=== PATIENT | female | born 1945 | race Caucasian/White ===

== ENCOUNTER 2016-07-29 19:08 | Inpatient (IN) | payer MEDICARE ==
[2016-07-29 20:16] LABS: Hematocrit 28 % (35-47); Hemoglobin 9.3 g/dl (12.0-16.0); Mean Corpuscular HGB Conc 33 g/dl (31-36); Mean Corpuscular Hemoglobin 30 pg (27-31); Mean Corpuscular Volume 91 fL (80-97); Mean Platelet Volume 9 um3 (7.4-10.4); Red Blood Count 3.12 10^6/ul (4.0-5.4); Red Cell Distribution Width 13 % (10.5-15); White Blood Count 11.4 10^3/ul (3.5-10.8)
[2016-07-29 20:31] LABS: Albumin 3.1 g/dL (3.2-5.2); BUN/Creatinine Ratio 75.6 (8-20); Calcium 8.6 mg/dL (8.6-10.3); EGFR African American 93.6 (>60); EGFR Non-African American 72.8 (>60); Globulin 2.3 g/dL (2-4); Potassium 4.5 mmol/L (3.5-5.0); Total Bilirubin 0.3 mg/dL (0.2-1.0); Total Protein 5.4 g/dL (6.4-8.9)
[2016-07-29] MEDS ORDERED: Melatonin (NF) 3 MG TAB PO PRN (20:54)
[2016-07-29] MEDS ORDERED: Ondansetron INJ* 2 MG/ML VIAL IV PRN (20:54)
[2016-07-29] MEDS ORDERED: Acetaminophen TAB* 325 MG PO PRN (20:54)
[2016-07-29] MEDS ORDERED: Pantoprazole IV* 40 MG IV ONE (21:07)
[2016-07-29] MEDS: NS 0.9% 1000 ML* 1,000 ML IV SCH ×3 (21:34→23:53)
--- NOTE | 2016-07-29 23:34 | ED ---
Benito Morin Salem, scribed for Camron Madsen MD on 07/29/16 at 8 . GI/ HPI - HPI Summary HPI Summary: Patient is a 71 y/o F who presents to the ED with black tarry stool for the last 2 days. She also reports constipation since onset and progressive weakness (to the point of lightheadedness with walking). However, pt denies any pain. Pt has a hx of gallstones. - History of Current Complaint Chief Complaint: EDGIBleed Time Seen by Provider: 07/29/16 19:27 Stated Complaint: LOWER GI BLEED Hx Obtained From: Patient Onset/Duration: Started Days Ago, Atraumatic, Still Present Timing: Intermittent Severity: Moderate Current Severity: Moderate Pain Intensity: 0 Associated Signs and Symptoms: Positive: Black Tarry Stool Aggravating Factor(s): Nothing Alleviating Factor(s): Nothing - Allergy/Home Medications Allergies/Adverse Reactions: Allergies Allergy/AdvReac Type Severity Reaction Status Date / Time Shellfish Allergy Allergy Flushing Verified 03/15/15 11:16 Sulfa Antibiotics Allergy Unknown Verified 03/15/15 11:16 Reaction Details Home Medications: Home Medications Ascorbic Acid TAB* [Vitamin C TAB*] 1,000 mg PO DAILY 07/29/16 [History Confirmed 07/29/16] Cholecalciferol [D3-1000] 1,000 unit PO DAILY 07/29/16 [History Confirmed ] Cyanocobalamin [B12] 5,000 mcg PO DAILY 07/29/16 [History Confirmed 07/29/16] PMH/Surg Hx/FS Hx/Imm Hx Cardiovascular History: Reports: Hx Hypertension - ON MEDS, STATES CONTROLLED Musculoskeletal History: Reports: Hx Arthritis - KNEES, SHOULDERS, GETS ACCUPUNCTURE FOR RELIEF Sensory History: Reports: Hx Cataracts - LEFT EYE, Hx Contacts or Glasses - GLASSES Opthamlomology History: Reports: Hx Cataracts - LEFT EYE, Hx Contacts or Glasses - GLASSES Psychiatric History: Reports: Hx Anxiety - Hx OF, PAST, Hx Depression - Hx OF, CURRENT, NO MEDS - Surgical History Surgery Procedure, Year, and Place: RIGHT EYE CATARACT [place] Hx Anesthesia Reactions: No Infectious Disease History: No Infectious Disease History: Denies: Traveled Outside the [place] in Last 30 Days - Family History Known Family History: Positive: Other - Cataract. - Social History Alcohol Use: None Hx Substance Use: No Substance Use Type: Reports: None Hx Tobacco Use: No Smoking Status (MU): Never Smoked Tobacco Have You Smoked in the Last Year: No Review of Systems Positive: Other - No pain. Positive: other - Black tarry stool. Constipation. Neurological: Other - Lightheadedness with walking. Positive: Weakness All Other Systems Reviewed And Are Negative: Yes Physical Exam - Summary Physical Exam Summary: Pt denies rectal exam. Triage Information Reviewed: Yes Vital Signs On Initial Exam: Initial Vitals Temp Pulse Resp BP Pulse Ox 97.2 F 99 16 172/94 98 07/29/16 19:25 07/29/16 19:25 07/29/16 19:25 07/29/16 19:25 07/29/16 19:25 Vital Signs Reviewed: Yes Appearance: Positive: Well-Appearing, No Pain Distress, Obese Skin: Positive: Warm, Skin Color Reflects Adequate Perfusion, Dry Head/Face: Positive: Normal Head/Face Inspection Eyes: Positive: Normal Neck: Positive: Supple, Nontender Respiratory/Lung Sounds: Positive: Clear to Auscultation, Breath Sounds Present Cardiovascular: Positive: RRR Abdomen Description: Positive: Nontender, Soft Bowel Sounds: Positive: Present Musculoskeletal: Positive: Normal Neurological: Positive: Normal Psychiatric: Positive: Normal, Affect/Mood Appropriate - Ursula Coma Scale Coma Scale Total: 15 Diagnostics - Vital Signs Vital Signs Temp Pulse Resp BP Pulse Ox 07/29/16 19:38 92 19 97 07/29/16 19:25 97.2 F 99 16 172/94 98 - Laboratory Lab Results: Lab Results 07/29/16 Range/Units 20:10 WBC 11.4 H (3.5-10.8) 10^3/ul RBC 3.12 L (4.0-5.4) 10^6/ul Hgb 9.3 L (12.0-16.0) g/dl Hct 28 L (35-47) % MCV 91 (80-97) fL MCH 30 (27-31) pg MCHC 33 (31-36) g/dl RDW 13 (10.5-15) % Plt Count 242 (150-450) 10^3/ul MPV 9 (7.4-10.4) um3 Neut % (Auto) 81.5 (38-83) % Lymph % (Auto) 14.0 L (25-47) % [place] % (Auto) 3.8 (1-9) % Eos % (Auto) 0.2 (0-6) % Baso % (Auto) 0.5 (0-2) % Absolute Neuts (auto) 9.3 H (1.5-7.7) 10^3/ul Absolute Lymphs (auto) 1.6 (1.0-4.8) 10^3/ul Absolute Monos (auto) 0.4 (0-0.8) 10^3/ul Absolute Eos (auto) 0 (0-0.6) 10^3/ul Absolute Basos (auto) 0.1 (0-0.2) 10^3/ul Absolute Nucleated RBC 0.01 10^3/ul Nucleated RBC % 0.1 Result Diagrams: 07/29/16 20:10 07/29/16 20:10 Lab Statement: Any lab studies that have been ordered have been reviewed, and results considered in the medical decision making process. Re-Evaluation - Re-Evaluation First Eval Re-Evaluation Time: 21:25 Comment: Informed pt of plan. GIGU Course/Dx - Course Course Of Treatment: Ms. Quintana presented C/O black stools for a couple days. She refused a rectal exam because of childhood trauma. Her hemoglobin was 9.3 and her BUN 69 indicating a likely upper GI bleed. She was borderliine tachycardic on arrival and improved with a liter of NS. She was started on protonix as a bolus and drip and the hospitalists were contacted for admission. Dr. Browne was notified of his admission. - Diagnoses Provider Diagnoses: Upper GI hemorrhage - Physician Notifications Discussed Care Of Patient With: Dr. Browne Time Discussed With Above Provider: 21:18 Instructed by Provider To: Other - Discussed case. Dr. Mon (hospitalist ) @ [id number]. Will admit. Admit/Transition Orders Completed By ED Provider: Yes - Critical Care Time Critical Care Time: 30-74 min Discharge - Discharge Plan Condition: Stable Disposition: ADMITTED TO [facility] documentation as recorded by the Benito tafoya Salem accurately reflects the service I personally performed and the decisions made by , Camron Madsen MD.
[2016-07-29] MEDS: Pantoprazole IV* 80 MG in NS 0.9% 250 ML* 250 ML IVPB SCH (23:39)
[2016-07-30 01:33] LABS: Hematocrit 24 % (35-47); Hemoglobin 7.8 g/dl (12.0-16.0)
[2016-07-30] MEDS: NS 0.9% 1000 ML* 1,000 ML IV SCH ×2 (01:34→12:49)
--- NOTE | 2016-07-30 04:34 | HP ---
H&P (Free Text) History and Physical: PCP: none; Patient states she doesn't believe in "Western Medicine" and so follow with an accupuncturist Date/Time of Evaluation: 07/29/20162044 CC: black stools HPI: Mrs Quintana is a 71YO obese white female HX HTN for which she self-D/C'd her medications long ago who reports painless black bowel movements starting 2 days ago with her last BM at home having bright red on the more normal brown exterior. She had a small BM upon arrival to [facility] described as normal. She admits to fatigue, but denies HX of similar, F/C, N/V, chest pain, SOB, or other. Rather than her current history, she is more interested and perseverant regarding being told long ago she had gall stones and needed a cholecystectomy which she refused. She changed her diet and "hasn't had any problems since, except some pain (motions to her RUQ)" when she eats high fat meals. PMedHx HTN cholelithiasis PSurgHx denies SocHx: denies tobacco, alcohol, & recreational drugs; lives alone; full code status FamHx: positive for HTN ROS: as above, otherwise reviewed and all were negative Constitutional: NAD, normally developed, obese elderly white female vitals: Vital Signs Temp 36.9 C 07/29/16 23:41 Pulse 87 07/29/16 23:41 Resp 20 07/29/16 23:41 BP 137/77 07/29/16 23:41 Pulse Ox 98 07/29/16 23:41 Intake & Output 07/29/16 07/29/16 07/30/16 11:59 23:59 11:59 Intake Total 990 Output Total 750 Balance 240 Weight 104.553 kg Intake: IV Fluids 990 NS (0.9%) 990 Output: Urine 750 Other: # Voids 2 HEENM: atraumatic; sclera/conjunctiva: non-icteric/clear; hearing: clinically intact; oropharynx: clear, mucosa tacky Neck: soft tissue: non-tender; thyroid: normal Pulmonary: clear to auscultation bilaterally, good aeration, no accessory muscle use CV: RR/RR, normal S1S2, no carotid bruit, no jugular venous distention, 2+ B DP/ PT, no edema Abdominal: soft, non-distended, non-tender, no rebound/guarding/rigidity, normoactive bowel sounds, no hepatosplenomegaly or masses, no costovertebral angle tenderness Musculoskeletal: general: grossly intact; gait: stable Integumental: normal appearance and texture of exposed skin Psychiatric orientation: AA&O to PPS affect: calm mood: cooperative eye contact: good content: reliable responses: timely insight: poor Testing: Lab Results 07/29/16 07/29/16 07/29/16 Range/Units 20:10 20:10 21:25 WBC 11.4 H (3.5-10.8) 10^3/ul RBC 3.12 L (4.0-5.4) 10^6/ul Hgb 9.3 L (12.0-16.0) g/dl Hct 28 L (35-47) % MCV 91 (80-97) fL MCH 30 (27-31) pg MCHC 33 (31-36) g/dl RDW 13 (10.5-15) % Plt Count 242 (150-450) 10^3/ul MPV 9 (7.4-10.4) um3 Neut % (Auto) 81.5 (38-83) % Lymph % (Auto) 14.0 L (25-47) % Forrest % (Auto) 3.8 (1-9) % Eos % (Auto) 0.2 (0-6) % Baso % (Auto) 0.5 (0-2) % Absolute Neuts (auto) 9.3 H (1.5-7.7) 10^3/ul Absolute Lymphs (auto) 1.6 (1.0-4.8) 10^3/ul Absolute Monos (auto) 0.4 (0-0.8) 10^3/ul Absolute Eos (auto) 0 (0-0.6) 10^3/ul Absolute Basos (auto) 0.1 (0-0.2) 10^3/ul Absolute Nucleated RBC 0.01 10^3/ul Nucleated RBC % 0.1 Sodium 135 (133-145) mmol/L Potassium 4.5 (3.5-5.0) mmol/L Chloride 107 (101-111) mmol/L Carbon Dioxide 24 (22-32) mmol/L Anion Gap 4 (2-11) mmol/L BUN 59 H (6-24) mg/dL Creatinine 0.78 (0.51-0.95) mg/dL Est GFR ( Amer) 93.6 (>60) Est GFR (Non-Af Amer) 72.8 (>60) BUN/Creatinine Ratio 75.6 H (8-20) Glucose 140 H (70-100) mg/dL Calcium 8.6 (8.6-10.3) mg/dL Total Bilirubin 0.30 (0.2-1.0) mg/dL AST 16 (13-39) U/L ALT 9 (7-52) U/L Alkaline Phosphatase 41 (34-104) U/L Total Protein 5.4 L (6.4-8.9) g/dL Albumin 3.1 L (3.2-5.2) g/dL Globulin 2.3 (2-4) g/dL Albumin/Globulin Ratio 1.3 (1-3) Blood Type A Positive Antibody Screen Negative 07/30/16 Range/Units 01:28 WBC (3.5-10.8) 10^3/ul RBC (4.0-5.4) 10^6/ul Hgb 7.8 L (12.0-16.0) g/dl Hct 24 L (35-47) % MCV (80-97) fL MCH (27-31) pg MCHC (31-36) g/dl RDW (10.5-15) % Plt Count (150-450) 10^3/ul MPV (7.4-10.4) um3 Neut % (Auto) (38-83) % Lymph % (Auto) (25-47) % Forrest % (Auto) (1-9) % Eos % (Auto) (0-6) % Baso % (Auto) (0-2) % Absolute Neuts (auto) (1.5-7.7) 10^3/ul Absolute Lymphs (auto) (1.0-4.8) 10^3/ul Absolute Monos (auto) (0-0.8) 10^3/ul Absolute Eos (auto) (0-0.6) 10^3/ul Absolute Basos (auto) (0-0.2) 10^3/ul Absolute Nucleated RBC 10^3/ul Nucleated RBC % Sodium (133-145) mmol/L Potassium (3.5-5.0) mmol/L Chloride (101-111) mmol/L Carbon Dioxide (22-32) mmol/L Anion Gap (2-11) mmol/L BUN (6-24) mg/dL Creatinine (0.51-0.95) mg/dL Est GFR ( Amer) (>60) Est GFR (Non-Af Amer) (>60) BUN/Creatinine Ratio (8-20) Glucose (70-100) mg/dL Calcium (8.6-10.3) mg/dL Total Bilirubin (0.2-1.0) mg/dL AST (13-39) U/L ALT (7-52) U/L Alkaline Phosphatase (34-104) U/L Total Protein (6.4-8.9) g/dL Albumin (3.2-5.2) g/dL Globulin (2-4) g/dL Albumin/Globulin Ratio (1-3) Blood Type Antibody Screen Impression: 71F presenting most consist with an upper GI bleed DIAGNOSIS & PLAN Primary upper GI bleed : pantoprazole bolus/GTT : IVFs : type & screen : trend H&H : Slavador Browne MD GI consulted by Reginald Madsen MD ED; will follow : clear liquids/NPO after 0400 for EGD in AM (initially reluctant to consent, but agrees to me) Secondary HTN : monitor, initiate meds as indicated cholelithiasis : no acute issues Admission Rational: inpatient for upper GI bleed not anticipated to be adequately stabilized w/i 48h to allow for discharge DVTp: SCDs, no anticoagulation 2nd GI bleeding Code Status: full HCP: declines to designate
[2016-07-30 05:07] LABS: Hematocrit 25 % (35-47); Hemoglobin 8.1 g/dl (12.0-16.0); Mean Corpuscular HGB Conc 33 g/dl (31-36); Mean Corpuscular Hemoglobin 30 pg (27-31); Mean Corpuscular Volume 91 fL (80-97); Mean Platelet Volume 10 um3 (7.4-10.4); Red Blood Count 2.71 10^6/ul (4.0-5.4); Red Cell Distribution Width 13 % (10.5-15); White Blood Count 9.9 10^3/ul (3.5-10.8)
[2016-07-30 05:30] LABS: BUN/Creatinine Ratio 60.6 (8-20); EGFR African American 104.4 (>60); EGFR Non-African American 81.2 (>60); Potassium 3.5 mmol/L (3.5-5.0)
--- NOTE | 2016-07-30 10:36 | PN ---
Subjective Date of Service: 07/30/16 Interval History: No nausea, pain. No BM since admission. No new c/o. Objective Active Medications: Acetaminophen (Tylenol Tab*) 650 mg PO Q6H PRN PRN Reason: FEVER/PAIN Pantoprazole Sodium 80 mg/ (Sodium Chloride) 250 mls @ 25 mls/hr IVPB Q10H [facility] Last Admin: 07/29/16 23:39 Dose: 25 mls/hr Sodium Chloride (Ns 0.9% 1000 Ml*) 1,000 mls @ 125 mls/hr IV PER RATE [facility] Last Admin: 07/30/16 01:34 Dose: 125 mls/hr Sodium Chloride (Ns 0.9% 1000 Ml*) 1,000 mls @ 0 mls/hr IV WIDE OPEN SUSANNE PRN Reason: Wide Open Stop: 07/30/16 21:01 Last Admin: 07/29/16 23:53 Dose: 999 mls/hr Melatonin (Melatonin (Nf)) 3 mg PO BEDTIME PRN; Protocol PRN Reason: Sleep Ondansetron HCl (Zofran Inj*) 4 mg IV Q6H PRN PRN Reason: NAUSEA Vital Signs 07/29/16 07/29/16 07/29/16 20:55 21:00 21:30 Temperature Pulse Rate Respiratory Rate Blood Pressure 157/86 169/86 155/76 (mmHg) O2 Sat by Pulse Oximetry 07/29/16 07/29/16 07/30/16 22:19 23:41 07:15 Temperature 98.0 F 98.4 F 97.4 F Pulse Rate 86 87 77 Respiratory 20 20 16 Rate Blood Pressure 161/95 137/77 154/71 (mmHg) O2 Sat by Pulse 100 98 97 Oximetry 07/30/16 08:00 Temperature Pulse Rate Respiratory 16 Rate Blood Pressure (mmHg) O2 Sat by Pulse Oximetry Oxygen Devices in Use Now: None Appearance: Alert, sitting up in bed. In good spirits. Looks comfortable. Eyes: No Scleral Icterus, PERRLA, - Abdominal: NL Sounds; No Tenderness; No Distention, No Hepatosplenomegaly, - Extremities: No Edema, No Clubbing, Cyanosis, - Skin: No Rash or Ulcers, No Nodules or Sclerosis, - Neurological: Alert and Oriented x 3, NL Sensation Result Diagrams: 07/30/16 04:47 07/30/16 04:47 Additional Lab and Data: Lab Results 07/29/16 Range/Units 20:10 WBC 11.4 H (3.5-10.8) 10^3/ul RBC 3.12 L (4.0-5.4) 10^6/ul Hgb 9.3 L (12.0-16.0) g/dl Hct 28 L (35-47) % MCV 91 (80-97) fL MCH 30 (27-31) pg MCHC 33 (31-36) g/dl RDW 13 (10.5-15) % Plt Count 242 (150-450) 10^3/ul MPV 9 (7.4-10.4) um3 Neut % (Auto) 81.5 (38-83) % Lymph % (Auto) 14.0 L (25-47) % [place] % (Auto) 3.8 (1-9) % Eos % (Auto) 0.2 (0-6) % Baso % (Auto) 0.5 (0-2) % Absolute Neuts (auto) 9.3 H (1.5-7.7) 10^3/ul Absolute Lymphs (auto) 1.6 (1.0-4.8) 10^3/ul Absolute Monos (auto) 0.4 (0-0.8) 10^3/ul Absolute Eos (auto) 0 (0-0.6) 10^3/ul Absolute Basos (auto) 0.1 (0-0.2) 10^3/ul Absolute Nucleated RBC 0.01 10^3/ul Nucleated RBC % 0.1 Assess/Plan/Problems-Billing Assessment: - Patient Problems (1) UGI bleed Current Visit: Yes Status: Acute Code(s): K92.2 - GASTROINTESTINAL HEMORRHAGE, UNSPECIFIED SNOMED Code(s): 85705122 Comment: Continue IV PPI. EGD today. Pt had many appropriate questions which I answered. Discussed with Dr. Browne.
[2016-07-30 12:25] LABS: Hematocrit 26 % (35-47); Hemoglobin 8.6 g/dl (12.0-16.0)
[2016-07-30] MEDS ORDERED: Meperidine SYRINGE* 50 MG/ML ONE (14:07)
[2016-07-30] MEDS ORDERED: Midazolam* 1 MG/ML 10 ML VIAL (10 MG) ONE (14:08)
--- NOTE | 2016-07-30 15:19 | PN ---
Progress Note - Progress Note Note: EGD results discussed with Dr. Browne. He recommends continuing the IV pantoprazole until 07/31, and discharging her on omeprazole 40 mg once daily with instructions to take NO NSAIDS.
[2016-07-30] MEDS: Pantoprazole IV* 80 MG in NS 0.9% 250 ML* 250 ML IVPB SCH ×2 (16:37→19:28)
[2016-07-30] MEDS ORDERED: Pantoprazole IV* 40 MG ONE (19:19)
[2016-07-30] MEDS ORDERED: Pantoprazole IV* 40 MG IV ONE (20:44)
[2016-07-30 22:35] LABS: Ferritin 56.9 ng/mL (11-307)
--- NOTE | 2016-07-30 23:43 | CONS ---
GASTROENTEROLOGY CONSULT: DATE OF CONSULT: 07/30/16 REFERRING PHYSICIAN: Edy Steinberg MD REASON FOR CONSULTATION: Weakness, dizziness with black stool and hemoglobin of 9.3 on admission falling to 7.8 overnight. HISTORY: This 71-year-old woman who moved to [place] 2 years ago and lives alone says that on 07/27/16, she passed a very dark stool. She had not been taking Pepto- Bismol. The next day, 07/28/16, she felt weaker and dizzy and was diaphoretic. The weakness scared her and she decided to come to the hospital even though she objects to most traditional medicine concepts. She does not have a regular allopathic physician in [place]. She denies any abdominal pain. She will take aspirin for headaches, though emphasizes they are infrequent, no more than several times a year. Additionally , she does take Aleve sometimes for aches and pains, but emphasizes that that is rare also. She has never been treated for a peptic problem. There has been no nausea or vomiting. She has been a vegetarian for over 10 years, but states unaccountably she had a craving to have meat and had some about 3 days ago and wonders if that upset her. PAST MEDICAL HISTORY: She is not followed by a regular physician. 1. Hypertension - she says that she took regular medicines briefly, but decided she was scared of side effects and so put herself on [place] herbs and after some months, weaned herself off that. In the hospital, her blood pressure has been edging downward into a normal range, 154/74 this morning. 2. Gallstones - she said she refused a cholecystectomy many years ago. 3. Status post cataract surgery - twice several years apart. She had no trouble with the premedication. SOCIAL HISTORY: She is from the [place], [place] area originally. She went to college in [employer] and got a master's in anthropology. 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 She lives alone and is estranged from her family. She does have a friend in [place], [place] that she would contact if something were life threatening, though at this time did not have a healthcare proxy. She recognizes the importance of that. REVIEW OF SYSTEMS: No known history of heart disease, pulmonary disease, liver or kidney disease. She is not treated for any dermatologic problems. She has never had a stroke. She has never been told she is anemic or placed on iron. She had seen Dr. Roberta Paulson in 2016, but has not been back there since her intermediate. PHYSICAL EXAMINATION: She is a slightly pale, elderly woman, asking many questions. Pulse 76, regular. HEENT exam is unremarkable. She has no adenopathy. Her lungs are clear. Heart sounds are regular. Breast and pelvic exams: Deferred. The abdomen is obese, but normal bowel sounds, soft, and nontender. Rectal: Deferred. Extremities: Show puffiness, but no pitting edema. Muscle tone seems reduced. LABORATORY DATA: Her first CBC in the hospital system, 07/29/16, showed a hemoglobin of 9.3, MCV 91, platelets 242, and her initial chemistries from the same date were normal with normal LFT's, albumin 3.1, creatinine 0.71. IMPRESSION: This 71-year-old woman presenting with the subacute upper GI bleed. It was fast enough to cause presyncope 2 days ago. Clearly, the first test is upper endoscopy. She is on a PPI drip at the moment. She asked numerous questions, mostly revealing a mistrust of most medical processes. She simultaneously asked whether the test could be done within hours or why it could not wait to be done as an outpatient in a week. The overall impression is one of marked anxiety and a preference for alternative medicine. [id number]/[facility] #: [id number] MTDD
[2016-07-31] MEDS: NS 0.9% 1000 ML* 1,000 ML IV SCH (01:49)
[2016-07-31] MEDS: Pantoprazole IV* 80 MG in NS 0.9% 250 ML* 250 ML IVPB SCH (07:40)
--- NOTE | 2016-07-31 08:54 | PRO ---
DATE: 07/30/16 - ROOM #446 REFERRING PHYSICIAN: Roberta Paulson MD * PROCEDURE: Upper gastrointestinal endoscopy and CLOtest. INDICATION: This 71-year-old woman came in with melena. Her hemoglobin which had been 9.3, decreased to 7.6 and then without transfusion it has come back up to 8.3. ENDOSCOPIST: Dr. Browne. MEDICATIONS: Midazolam 4, meperidine 37.5. FINDINGS: She is an elderly woman, slightly pale, in no overt distress. She tolerated the exam exceedingly well. EGD: Larynx - symmetric, limited views. Esophagus - easily entered and the mucosa is normal in the upper, mid, and lower esophagus. The EG junction is a little loose at 39, though no erosions or chronic change. Stomach - generally normal mucosa in the cardia, fundus, and body. There are some erosions in the mid to distal antrum and then there is deformity and contraction of the distal antrum with a narrowed lumen and multiple small ulcers , some with red edges in the antrum. There is no active bleeding and no clot. The area appears benign as there is no shelf or fungating area. Duodenum - the pylorus appears normal and the bulb has just some minimal erythema. The second, third, and fourth portions of the duodenum appeared normal. IMPRESSION: Deformed gastric antrum with ulcerations - this fits her history fairly well. Whether there was a chronic component to her bleeding is uncertain but suspected. The etiology would be most likely helicobacter, although her use of Aleve may be more than so far revealed. Tumor is not as likely though a repeat exam in 2 months will be requested. [id number]/[facility] #: [id number] MTDD
--- NOTE | 2016-07-31 09:46 | DCNOTE ---
Patient seen this morning. Had long conversation about EGD findings, need for medication, avoidance of NSAIDs. States she notes her stool is lightening, no longer dark black. No abdominal pain or chest pain. On exam, lungs CTA B/L, no w/r/r, abd soft, NTND, BS+, RRR, s1 and s2 present, no m/g/r. Patient refused IV protonix this AM, also refused repeat blood draw to monitor Hb/Hct. Will discharge home on PO Omeprazole. Encouraged avoidance of NSAIDs. Patient hesitant to follow-up with an physicians that are opposed to alternative medicine. Used to see Dr. Paulson who is no longer practicing, will provide number for Dr. Fair who is part of [facility] as well. Also will need to f/u with Dr. Browne's office.
[2016-07-31] MEDS ORDERED: Omeprazole CAP* 20 MG ONE (09:53)
[2016-07-31 10:12] VITALS: BP 151/81
--- NOTE | 2016-07-31 16:50 | DS ---
CC: Dr. Roberta Paulson; Dr. Fair * DATE OF ADMISSION: 07/29/2016. DATE OF DISCHARGE: 07/31/2016. PRIMARY CARE PHYSICIAN: Dr. Roberta Paulson. DISCHARGE MEDICATION REGIMEN: 1. Omeprazole 40 mg by mouth daily. 2. Milk thistle two tablets by mouth daily. 3. Vitamin C 1000 mg by mouth daily. 4. Cholecalciferol 1000 units by mouth daily. 5. Cyanocobalamin 5000 mcg by mouth daily. STUDY DONE DURING HOSPITALIZATION: Upper endoscopy: Impression: Deformed gastric antrum with ulcerations. No active bleeding. HISTORY OF PRESENT ILLNESS AND HOSPITAL SUMMARY: Please see the full history and physical by Dr. Sanjiv Mon for full details. Briefly, Ms. Quintana is a 71-year- old female with a past medical history of hypertension who presented to the hospital with melena. She was found to have a microcytic anemia with hemoglobin dropping to 7.8. She did not receive any blood transfusions while in the hospital. She was started on a Protonix drip and GI was consulted. The patient was evaluated by Dr. Browne and the patient underwent an EGD that showed some ulcerations in the antrum. On the day of discharge, the patient decided to discontinue her own PPI drip and she also refused any further blood work to ensure her hemoglobin and hematocrit were not dropping. She did state that her stools have been lightening. She is very anxious to leave the hospital. She was discharged on oral Omeprazole and was given a dose prior to leaving the hospital. She will need to follow-up with GI and she will need a new PCP appointment. I have provided her the number for Dr. Fair's office who used to share an office with Dr. Paulson who is no longer practicing in the area, so hopefully she will follow up, although the patient has endorsed distrust of western medicine, but I have encouraged her to follow-up as closely from his hospitalization. She was also ordered to have a CBC checked in about one week. Total time spent on this discharge was 45 minutes. This is a summary of this hospitalization, please see the full medical record for full details. [id number]/[facility] #: [id number] [facility]
[2016-08-01] MEDS ORDERED: Omeprazole CAP* 20 MG PO SCH ×2 (06:00→08:40)
== END 2016-07-31 11:00 | disposition home or self-care (01) | DRG 379 ==
LOC: ED 19:08 → MEDTELE 20:44
PROVIDERS: ADMIT Hospitalist; ATTEND Hospitalist
PROC: 0DB68ZX Excision of Stomach, Via Natural or Artificial Opening Endoscopic, Diagnostic (ICD-10-PCS; principal; 2016-07-30)
DX: K92.1 Melena (principal); K25.9 Gastric ulcer, unspecified as acute or chronic, without hemorrhage or perforation; I10 Essential (primary) hypertension; K80.20 Calculus of gallbladder without cholecystitis without obstruction; Q40.2 Other specified congenital malformations of stomach
CPT/HCPCS: 36415; 80048; 80053; 82728; 83540; 83550; 85014; 85018; 85025; 85027; 86850; 86900; 86901; 87077; A9270-GY; J2250

== ENCOUNTER 2022-09-24 18:49 | Inpatient (IN) ==
[2022-09-24] MEDS ORDERED: NS 0.9% 1000 ml BAG 1,000 ML IV ONE (21:26)
[2022-09-24 21:38] LABS: ABS Basophils 0.1 10^3/uL (0.0-0.1); ABS Eosinophils 0.1 10^3/uL (0.0-0.5); ABS Lymphocytes 3.1 10^3/uL (1.0-4.8); ABS Monocytes 1.2 10^3/uL (0.0-0.9); ABS Neutrophils 8.4 10^3/uL (1.5-7.6); ABS Nucleated RBC 0.01 10^3/ul; Eosinophil % 0.7 %; Hematocrit 41.3 % (35-45); Hemoglobin 13.7 g/dL (11.5-14.3); Lymphocyte % 24.2 %; Mean Corpuscular Hemoglobin 30.8 pg (27-33); Mean Corpuscular Hgb Conc 33.3 g/dL (31-36); Mean Corpuscular Volume 92.4 fL (80-97); Mean Platelet Volume 10.1 fL (7.5-11.2); Nucleated Red Blood Cells % 0.1 /100 WBC (0.0-0.4); Platelet Count 233 10^3/uL (150-450); Red Blood Count 4.47 10^6/uL (3.63-4.92); Red Cell Distribution Width 14.5 % (12-17)
[2022-09-24] MEDS ORDERED: Ondansetron 4 mg VIAL 2 MG/ML 2 ml VIAL ONE (21:45)
[2022-09-24] MEDS ORDERED: Ondansetron 4 mg VIAL 2 MG/ML 2 ml VIAL IV ONE ×2 (21:47→22:39)
[2022-09-24 21:58] LABS: ALT 27 U/L (7-52); AST 41 U/L (13-39); Albumin 3.8 g/dL (3.2-5.2); Albumin/Globulin Ratio 1.4 (1-3); Alkaline Phosphatase 68 U/L (35-149); Anion Gap 8 mmol/L (2-16); Blood Urea Nitrogen 13 mg/dL (6-24); C Reactive Protein 6.77 mg/L (<8.01); CO2 Carbon Dioxide 26 mmol/L (22-32); Calcium 8.9 mg/dL (8.6-10.3); Chloride 102 mmol/L (101-111); Creatinine, Serum 0.98 mg/dL (0.51-0.95); Globulin 2.7 g/dL (2-4); Glucose 140 mg/dL (70-100); Potassium 3.8 mmol/L (3.5-5.0); Sodium 136 mmol/L (135-145); Total Protein 6.5 g/dL (6.4-8.9); eGFR CKD-EPI 59.4 (>60)
[2022-09-24 22:03] LABS: High Sens Troponin Baseline 1263 pg/mL (<15)
[2022-09-24] MEDS ORDERED: Iodixanol (CONTRAST) 320 MG/ML 100 ML SDV IV ONE (22:03)
[2022-09-24 22:11] LABS: Alcohol, S < 13 mg/dL (<13)
[2022-09-24] MEDS ORDERED: LORazepam 2 mg VIAL 1 ml IV PUSH ONE (22:39)
[2022-09-24] MEDS ORDERED: Lorazepam PYXIS KEY PRN (22:39)
[2022-09-25] MEDS ORDERED: Ondansetron 4 mg VIAL 2 MG/ML 2 ml VIAL IV PRN (01:20)
[2022-09-25] MEDS: Heparin DRIP 25,000 UNITS BAG 25,000 UNITS/500 ML BAG IV SCH (01:47)
[2022-09-25] MEDS ORDERED: Heparin 5000 UNITS/ML 1 mL VIAL IV SCH (02:00)
[2022-09-25 02:23] LABS: Creatinine, Serum 0.97 mg/dL (0.51-0.95); eGFR CKD-EPI 60.2 (>60)
[2022-09-25 05:34] LABS: ABS Basophils 0.1 10^3/uL (0.0-0.1); ABS Lymphocytes 1.5 10^3/uL (1.0-4.8); ABS Monocytes 0.6 10^3/uL (0.0-0.9); ABS Neutrophils 7.4 10^3/uL (1.5-7.6); Eosinophil % 0.2 %; Hematocrit 36.7 % (35-45); Hemoglobin 12.4 g/dL (11.5-14.3); Lymphocyte % 15.2 %; Mean Corpuscular Hemoglobin 31.1 pg (27-33); Mean Corpuscular Hgb Conc 33.9 g/dL (31-36); Mean Corpuscular Volume 91.8 fL (80-97); Mean Platelet Volume 10.1 fL (7.5-11.2); Platelet Count 168 10^3/uL (150-450); Red Cell Distribution Width 14.1 % (12-17); White Blood Count 9.6 10^3/uL (3.8-11.8)
[2022-09-25 05:50] LABS: Calcium 8.4 mg/dL (8.6-10.3); Creatinine, Serum 0.91 mg/dL (0.51-0.95); Potassium 4.4 mmol/L (3.5-5.0)
[2022-09-25] MEDS ORDERED: Pantoprazole VIAL 40 MG VIAL IV SCH (09:00)
[2022-09-25] MEDS ORDERED: Sulfur Hexaflouride MICROSPHR 25 MG VIAL ONE (09:28)
[2022-09-26] MEDS: Heparin DRIP 25,000 UNITS BAG 25,000 UNITS/500 ML BAG IV SCH (04:21)
[2022-09-26 06:21] LABS: ABS Basophils 0.1 10^3/uL (0.0-0.1); ABS Eosinophils 0.3 10^3/uL (0.0-0.5); ABS Lymphocytes 1.4 10^3/uL (1.0-4.8); ABS Monocytes 0.8 10^3/uL (0.0-0.9); ABS Neutrophils 5.6 10^3/uL (1.5-7.6); ABS Nucleated RBC 0.01 10^3/ul; Eosinophil % 3.9 %; Hematocrit 39.1 % (35-45); Hemoglobin 13.2 g/dL (11.5-14.3); Lymphocyte % 16.8 %; Mean Corpuscular Hemoglobin 30.9 pg (27-33); Mean Corpuscular Hgb Conc 33.8 g/dL (31-36); Mean Corpuscular Volume 91.3 fL (80-97); Mean Platelet Volume 10.3 fL (7.5-11.2); Nucleated Red Blood Cells % 0.1 /100 WBC (0.0-0.4); Platelet Count 159 10^3/uL (150-450); Red Blood Count 4.28 10^6/uL (3.63-4.92); Red Cell Distribution Width 14.3 % (12-17)
[2022-09-26 06:35] LABS: Calcium 8.8 mg/dL (8.6-10.3); Creatinine, Serum 0.86 mg/dL (0.51-0.95); Potassium 4.6 mmol/L (3.5-5.0); eGFR CKD-EPI 69.5 (>60)
[2022-09-26 23:08] LABS: Urine Appearance Clear; Urine Bilirubin Negative (Negative); Urine Blood Negative (Negative); Urine Color Yellow; Urine Glucose Negative (Negative); Urine Ketones Negative (Negative); Urine Nitrite Negative (Negative); Urine Protein Negative (Negative); Urine Specific Gravity 1.006 (1.002-1.030); Urine Urobilinogen Negative (Negative)
[2022-09-26 23:13] LABS: Urine Amorphous Crystals Present (Absent); Urine Bacteria 1+ (Absent); Urine Red Blood Cell Absent (Absent); Urine Squamous Epithelial Cell Present (Absent); Urine White Blood Cell Trace(0-5/hpf) (Absent)
[2022-09-27 06:10] LABS: ABS Basophils 0.1 10^3/uL (0.0-0.1); ABS Eosinophils 0.3 10^3/uL (0.0-0.5); ABS Lymphocytes 1.5 10^3/uL (1.0-4.8); ABS Monocytes 0.7 10^3/uL (0.0-0.9); ABS Neutrophils 4.5 10^3/uL (1.5-7.6); ABS Nucleated RBC 0.01 10^3/ul; Eosinophil % 3.8 %; Hematocrit 36.4 % (35-45); Hemoglobin 12.4 g/dL (11.5-14.3); Mean Corpuscular Hemoglobin 31.4 pg (27-33); Mean Corpuscular Hgb Conc 34.1 g/dL (31-36); Mean Corpuscular Volume 91.9 fL (80-97); Mean Platelet Volume 9.5 fL (7.5-11.2); Nucleated Red Blood Cells % 0.1 /100 WBC (0.0-0.4); Platelet Count 161 10^3/uL (150-450); Red Blood Count 3.96 10^6/uL (3.63-4.92); Red Cell Distribution Width 14.3 % (12-17)
[2022-09-27 06:34] LABS: Calcium 8.6 mg/dL (8.6-10.3); Creatinine, Serum 0.88 mg/dL (0.51-0.95); Magnesium 1.8 mg/dL (1.9-2.7); Potassium 4.2 mmol/L (3.5-5.0); eGFR CKD-EPI 67.6 (>60)
[2022-09-27] MEDS ORDERED: Magnesium Sulfate 2 gm BAG 2 GM/50 ML BAG IVPB ONE ×2 (09:36→14:36)
[2022-09-27] MEDS: Heparin DRIP 25,000 UNITS BAG 25,000 UNITS/500 ML BAG IV SCH ×3 (11:55→19:26)
[2022-09-28 05:52] LABS: Calcium 8.5 mg/dL (8.6-10.3); Creatinine, Serum 0.78 mg/dL (0.51-0.95); Magnesium 1.9 mg/dL (1.9-2.7); eGFR CKD-EPI 78.2 (>60)
[2022-09-28 05:54] LABS: Hematocrit 34.8 % (35-45); Mean Corpuscular Hemoglobin 31.3 pg (27-33); Mean Corpuscular Hgb Conc 34.4 g/dL (31-36); Mean Corpuscular Volume 90.9 fL (80-97); Mean Platelet Volume 10.7 fL (7.5-11.2); Platelet Count 140 10^3/uL (150-450); Red Blood Count 3.83 10^6/uL (3.63-4.92); Red Cell Distribution Width 14.1 % (12-17)
[2022-09-28] MEDS: Heparin DRIP 25,000 UNITS BAG 25,000 UNITS/500 ML BAG IV SCH (07:15)
[2022-09-29 07:33] LABS: ABS Basophils 0.1 10^3/uL (0.0-0.1); ABS Eosinophils 0.2 10^3/uL (0.0-0.5); ABS Lymphocytes 1.7 10^3/uL (1.0-4.8); ABS Monocytes 0.6 10^3/uL (0.0-0.9); ABS Neutrophils 4.2 10^3/uL (1.5-7.6); Eosinophil % 3.2 %; Hematocrit 35.9 % (35-45); Hemoglobin 12.2 g/dL (11.5-14.3); Lymphocyte % 24.6 %; Mean Corpuscular Hemoglobin 30.9 pg (27-33); Mean Corpuscular Volume 90.8 fL (80-97); Mean Platelet Volume 10.8 fL (7.5-11.2); Platelet Count 166 10^3/uL (150-450); Red Blood Count 3.95 10^6/uL (3.63-4.92); Red Cell Distribution Width 14.4 % (12-17); White Blood Count 6.7 10^3/uL (3.8-11.8)
[2022-09-29 07:34] LABS: Albumin 3.2 g/dL (3.2-5.2); Albumin/Globulin Ratio 1.3 (1-3); Calcium 8.6 mg/dL (8.6-10.3); Creatinine, Serum 0.75 mg/dL (0.51-0.95); Globulin 2.4 g/dL (2-4); Potassium 4.5 mmol/L (3.5-5.0); Total Bilirubin 0.5 mg/dL (0.2-1.0); Total Protein 5.6 g/dL (6.4-8.9); eGFR CKD-EPI 81.9 (>60)
[2022-09-29] MEDS: Polyethylene Glycol 3350 17 GM PACKET PO PRN (10:28)
[2022-09-29] MEDS: Senna TAB 8.6 mg TAB PO PRN (19:23)
[2022-09-30 06:59] LABS: ABS Basophils 0.1 10^3/uL (0.0-0.1); ABS Eosinophils 0.2 10^3/uL (0.0-0.5); ABS Lymphocytes 2.2 10^3/uL (1.0-4.8); ABS Monocytes 0.6 10^3/uL (0.0-0.9); ABS Neutrophils 5.1 10^3/uL (1.5-7.6); Eosinophil % 2.6 %; Hematocrit 35.5 % (35-45); Lymphocyte % 26.7 %; Mean Corpuscular Hemoglobin 30.8 pg (27-33); Mean Corpuscular Hgb Conc 33.7 g/dL (31-36); Mean Corpuscular Volume 91.3 fL (80-97); Mean Platelet Volume 10.6 fL (7.5-11.2); Platelet Count 188 10^3/uL (150-450); Red Blood Count 3.89 10^6/uL (3.63-4.92); Red Cell Distribution Width 14.7 % (12-17); White Blood Count 8.2 10^3/uL (3.8-11.8)
[2022-09-30 07:10] LABS: Albumin 3.3 g/dL (3.2-5.2); Albumin/Globulin Ratio 1.3 (1-3); Calcium 8.7 mg/dL (8.6-10.3); Creatinine, Serum 0.72 mg/dL (0.51-0.95); Globulin 2.5 g/dL (2-4); Potassium 4.4 mmol/L (3.5-5.0); Total Bilirubin 0.5 mg/dL (0.2-1.0); Total Protein 5.8 g/dL (6.4-8.9); eGFR CKD-EPI 86.1 (>60)
[2022-09-30] MEDS: Senna TAB 8.6 mg TAB PO PRN (09:49)
[2022-09-30] MEDS: Polyethylene Glycol 3350 17 GM PACKET PO PRN (09:49)
[2022-09-30] MEDS ORDERED: Magnesium Hydroxide LIQ 30 ML UDC PO PRN (14:45)
[2022-10-02 06:26] VITALS: BP 134/65
== END 2022-10-02 08:27 | disposition home or self-care (01) | DRG 175 ==
LOC: ED 18:49 → ICU 09-25 01:20 → SUATTDRO 09-25 01:20 → ICU 09-25 02:21 → MED 09-25 15:28
PROVIDERS: ADMIT Student in an Organized Health Care Education/Training Program; ATTEND Internal Medicine